=== PATIENT | female | born 1965 | race Caucasian/White ===

== ENCOUNTER → 2018-02-12 15:24 | Outpatient (CLI) | payer SELFPAY ==
--- NOTE | 2018-02-12 11:45 | EMB_PTH ---
PATIENT: PHILLIP DORAN LOC: [facility] U#:[id number] AGE/SX: 59/F ROOM: RE02/12/[address]: Dr. Amalia Allen MD : 1965 BED: DIS: SPEC #: [id number] RECD: 02/12/18 13:58 STATUS: RYAN MEAGAN #: [id number] MANUELA: 02/12/18 11:[address]: Amalia Houston DEPT: SURGICAL PATHOLOGY RECD BY: Franchesca Beyer Tissues: Endometrium, NOS Procedures: Surgery Specimen Level IV HEADER OPERATION: Endometrial biopsy PRE-OP DIAGNOSIS: Abnormal uterine bleeding, LMP approximately 01/28/18, pap 2015 TISSUE SUBMITTED: Endometrial biopsy MICROSCOPIC DIAGNOSIS Endometrial biopsy: Proliferative endometrium. DARRELL:breezy 02/13/18 MICROSCOPIC DESCRIPTION Slides are reviewed. GROSS DESCRIPTION Received in fixative is one container labeled with the patient's name and designated endometrial biopsy. The specimen consists of multiple irregular fragments of red-bailey soft tissue that in aggregate measure 2.5 x 2 x 0.1 cm. The specimen is totally submitted in one cassette. / AM:breezy 02/12/18 TC:4 CPT: 27617
== END ==
PROVIDERS: Visit Provider Obstetrics & Gynecology
DX: Z12.4 Encounter for screening for malignant neoplasm of cervix (principal); N93.9 Abnormal uterine and vaginal bleeding, unspecified
CPT/HCPCS: 88175; 88305; G0145

== ENCOUNTER → 2020-04-07 | Outpatient (CLI) | payer OTHER, SELFPAY ==
--- NOTE | 2020-04-07 16:20 | EMB_PTH ---
PATIENT: PHILLIP DORAN LOC: [facility] U#:[id number] AGE/SX: 54/F ROOM: RE04/07/[address]: Dr. Remi Woodruff MD : 1965 BED: DIS: 04/07/2020 SPEC #: [id number] RECD: 04/08/20 09:26 STATUS: RYAN MEAGAN #: [id number] MANUELA: 04/07/20 16:[address]: Remi Woodruff DEPT: SURGICAL PATHOLOGY RECD BY: Candida Ybarra Tissues: Endometrium, NOS Procedures: Surgery Specimen Level IV HEADER OPERATION: Endometrial biopsy PRE-OP DIAGNOSIS: Irregular bleeding TISSUE SUBMITTED: Endometrial biopsy MICROSCOPIC DIAGNOSIS Endometrial biopsy: Proliferative endometrium. DARRELL:breezy 04/09/20 MICROSCOPIC DESCRIPTION Slides are reviewed. GROSS DESCRIPTION Received in fixative is one container labeled with the patient's name and designated EM biopsy. The specimen consists of multiple fragments of hemorrhagic soft tissue that in aggregate measure 2 x 1.5 x 0.1 cm. The specimen is totally submitted in one cassette. / SJ:rg 04/08/20 TC:4 CPT: 57280
[2020-04-11 11:34] LABS: HPV Reflexed? NOT INDICATED
== END | disposition home or self-care (01) ==
PROVIDERS: Referring Provider Obstetrics & Gynecology; Visit Provider Obstetrics & Gynecology
DX: N92.6 Irregular menstruation, unspecified (principal)
CPT/HCPCS: 88175; 88305; G0145